=== PATIENT | female | born 1995 | race Hispanic/Latino ===

== ENCOUNTER 2019-04-22 08:42 | Emergency (ER) | payer OTHER ==
[~2019-04-22] VITALS: Ht 162.6 cm; Wt 54.9 kg
[2019-04-22] MEDS ORDERED: CITALOPRAM HBR10 MG PO (08:52)
[2019-04-22] MEDS ORDERED: JUNEL1 EAC1 PO (08:52)
--- NOTE | 2019-04-22 17:40 | EKG ---
[facility] [address] [facility] [place] [address] Signed Sinus tachycardia Possible Left atrial enlargement Rightward axis Incomplete right bundle branch block Borderline ECG No previous ECGs available Confirmed by CARITO GIBSON DO ([id number]) on 04/22/2019 5:40:10 PM Electronically Signed By: CARITO GIBSON DO 04/22/19 1740 PATIENT NAME: LANCE GAONA Dmitry Electrocardiogram DATE OF : [birth year] PHYSICIAN: CARITO GIBSON DO REPORT #: [id number] REPORT IS CONFIDENTIAL AND NOT TO BE RELEASED WITHOUT AUTHORIZATION
--- NOTE | 2019-04-22 17:40 | EKG ---
[facility] [address] [facility] [place], [place] [address] Signed Normal sinus rhythm Normal ECG When compared with ECG of 22-APR-2019 08:50, (Unconfirmed) No significant change was found Confirmed by CARITO GIBSON DO ([id number]) on 04/22/2019 5:40:14 PM Electronically Signed By: CARITO GIBSON DO 04/22/19 1740 PATIENT NAME: LANCE GAONA Electrocardiogram DATE OF : [birth year] PHYSICIAN: CARITO GIBSON DO REPORT #: [id number] REPORT IS CONFIDENTIAL AND NOT TO BE RELEASED WITHOUT AUTHORIZATION
== END 2019-04-22 11:37 | disposition home or self-care (01) ==
LOC: ED 08:42
DX: R00.0 Tachycardia, unspecified (principal); E87.6 Hypokalemia; F15.10 Other stimulant abuse, uncomplicated; Z79.899 Other long term (current) drug therapy
CPT/HCPCS: 71260; 80053; 83735; 84484; 84703; 85025; 85379; 93005; 93010; 96361; 96374; 99285-25; J2060; J7030; J7121; Q9967